=== PATIENT | male | born 1995 | race Caucasian/White ===

== ENCOUNTER 2019-08-31 20:52 | Emergency (ER) | payer SELFPAY ==
[~2019-08-31] VITALS: Ht 177.8 cm; Wt 83.9 kg
[2019-08-31] MEDS ORDERED: ONDANSETRON PF 4 MG/2 ML VIAL. IVP ONE (21:30)
[2019-08-31] MEDS ORDERED: KETOROLAC 30 MG/ML VIAL. IVP ONE (21:30)
[2019-08-31] MEDS ORDERED: ORPHENADRINE CITRATE 60 MG/2 ML VIAL. IV ONE (21:30)
--- NOTE | 2019-08-31 22:41 | RAD ---
Study: LUMBAR SPINE 2-3V Indication: Lumbar radicular pain. Comparison: None. Findings: 5 nonrib-bearing lumbar vertebral elements. The AP view is degraded by extensive bowel gas. Straightening of lumbar lordosis. Vertebral body height is maintained. No significant disc space narrowing. Vertically oriented lucency through the inferior aspect of the L4 pedicle/inferior articulating facet appears artifactual. No spondylolisthesis. Facet hypertrophy on the left at L3-L4 Impression: 1. No acute fracture or malalignment. 2. Facet hypertrophy on the left at L3-L4. 2. Maintained vertebral body and disc space height. Electronically signed by: VANDANA RETANA MD (08/31/2019 10:38 PM) [facility]
[2019-08-31] MEDS ORDERED: PRED50TA PO (23:12)
[2019-08-31] MEDS ORDERED: CYCL-331 PO (23:12)
[2019-08-31] MEDS ORDERED: HYDR-3165 PO (23:12)
[2019-08-31 23:30] VITALS: BP 118/55
--- NOTE | 2019-09-01 06:29 | PHYS DOC ---
Past History Past Medical History: Other Additional Past Medical Histor: arithritis,nerve damage rt hip Past Surgical History: Other Additional Past Surgical Histo: abdominal surgery when child Alcohol Use: Occasionally Drug Use: None Adult General Chief Complaint Chief Complaint: BACK PAIN OR INJURY [facility] HPI Patient is a [age] year old [sex] who presents with [] Review of Systems Review of Systems Constitutional: Denies fever or chills [] Eyes: Denies change in visual acuity, redness, or eye pain [] HENT: Denies nasal congestion or sore throat [] Respiratory: Denies cough or shortness of breath [] Cardiovascular: No additional information not addressed in HPI [] GI: Denies abdominal pain, nausea, vomiting, bloody stools or diarrhea [] : Denies dysuria or hematuria [] Musculoskeletal: Denies back pain or joint pain [] Integument: Denies rash or skin lesions [] Neurologic: Denies headache, focal weakness or sensory changes [] Endocrine: Denies polyuria or polydipsia [] All other systems were reviewed and found to be within normal limits, except as documented in this note. Current Medications Current Medications Current Medications Medications (Trade) Dose Ordered Sig/Gregory Start Time Stop Time Status Last Admin Dose Admin Fentanyl Citrate (Fentanyl 2ml Vial) 75 mcg 1X ONCE 08/31/19 21:30 08/31/19 21:31 DC 08/31/19 21:30 75 MCG Ketorolac Tromethamine (Toradol 30mg Vial) 30 mg 1X ONCE 08/31/19 21:30 08/31/19 21:31 DC 08/31/19 21:30 30 MG Ondansetron HCl (Zofran) 4 mg 1X ONCE 08/31/19 21:30 08/31/19 21:31 DC 08/31/19 21:30 4 MG Orphenadrine Citrate (Norflex) 30 mg 1X ONCE 08/31/19 21:30 08/31/19 21:31 DC 08/31/19 21:30 30 MG Allergies Allergies Allergies Coded Allergies Type Severity Reaction Last Updated Verified No Known Drug Allergies 10/24/14 No Physical Exam Physical Exam Constitutional: Well developed, well nourished, no acute distress, non-toxic appearance. [] HENT: Normocephalic, atraumatic, bilateral external ears normal, oropharynx moist, no oral exudates, nose normal. [] Eyes: PERRLA, EOMI, conjunctiva normal, no discharge. [] Neck: Normal range of motion, no tenderness, supple, no stridor. [] Cardiovascular:Heart rate regular rhythm, no murmur [] Lungs & Thorax: Bilateral breath sounds clear to auscultation [] Abdomen: Bowel sounds normal, soft, no tenderness, no masses, no pulsatile masses. [] Skin: Warm, dry, no erythema, no rash. [] Back: No tenderness, no CVA tenderness. [] Extremities: No tenderness, no cyanosis, no clubbing, ROM intact, no edema. [] Neurologic: Alert and oriented X 3, normal motor function, normal sensory function, no focal deficits noted. [] Psychologic: Affect normal, judgement normal, mood normal. [] Current Patient Data Vital Signs Vital Signs Date Time Temp Pulse Resp B/P (MAP) Pulse Ox O2 Delivery O2 Flow Rate FiO2 08/31/19 23:30 59 18 118/55 (76) 97 Room Air 08/31/19 20:52 98.1 EKG EKG [] Radiology/Procedures Radiology/Procedures [] Course & Med Decision Making Course & Med Decision Making Pertinent Labs and Imaging studies reviewed. (See chart for details) [] Dragon Disclaimer Dragon Disclaimer This electronic medical record was generated, in whole or in part, using a voice recognition dictation system. Departure Departure: Impression: Primary Impression: Sciatic nerve pain Disposition: 01 HOME/RESIDENCE PRIOR TO ADM Condition: STABLE Referrals: PCP,NO (PCP) Patient Instructions: Sciatica, [id number] Additional Instructions: Please take pain medication muscle relaxants and steroids as directed. Avoid heavy lifting and strenuous physical activity. Follow-up with local primary care physician as soon as possible for reevaluation. Return to the ED if new or worsening symptoms.. Scripts Prednisone (PREDNISONE) 50 Mg Tablet 1 TAB PO DAILY, #5 TAB Prov: TUNDE PATEL DO 08/31/19 Cyclobenzaprine Hcl (CYCLOBENZAPRINE HCL) 10 Mg Tablet 1 TAB PO TID, #30 TAB Prov: TUNDE PATEL DO 08/31/19 Hydrocodone Bit/Acetaminophen (NORCO 5-325 TABLET) 1 Each Tablet 1 TAB PO TID, #30 TAB Prov: TUNDE PATEL DO 08/31/19 TUNDE PATEL DO Sep 01, 2019 06:29
== END 2019-08-31 23:30 | disposition home or self-care (01) ==
LOC: ER 20:52
DX: M54.42 Lumbago with sciatica, left side (principal); M19.90 Unspecified osteoarthritis, unspecified site
CPT/HCPCS: 72100; 96374; 96375; 99284; J1885; J2360; J2405; J3010

== ENCOUNTER 2022-01-09 15:45 | Emergency (ER) | payer SELFPAY ==
[~2022-01-09] VITALS: Ht 177.8 cm; Wt 76.0 kg
[~2022-01-09 15:45] MED LIST: CYCL10TA19 PO; HYDR-3165 PO; PRED50TA PO
[2022-01-09 15:56] VITALS: BP 152/103
[2022-01-09] MEDS ORDERED: FAMOTIDINE 20 MG/2 ML VIAL IVP ONE (16:15)
[2022-01-09] MEDS ORDERED: ONDANSETRON PF 4 MG/2 ML VIAL. IVP ONE (16:15)
[2022-01-09] MEDS ORDERED: KETOROLAC 15 MG/ML VIAL. IVP ONE (16:15)
[2022-01-09] MEDS ORDERED: IV NORMAL SALINE 1,000ML 1,000 ML IV ONE (16:15)
[2022-01-09] MEDS ORDERED: CONTRAST GIVEN. MC PRN (16:45)
[2022-01-09] MEDS ORDERED: IOHEXOL 300 MG/ML 75 ML VIAL. IV ONE (16:45)
--- NOTE | 2022-01-09 16:50 | PHYS DOC ---
Past History Past Medical History: Other Additional Past Medical Histor: arithritis,nerve damage rt hip (VALERIA KAYE DO) Past Surgical History: Other Additional Past Surgical Histo: abdominal surgery when child (VALERIA KAYE DO) Smoking: Non-smoker Alcohol Use: Occasionally Drug Use: None (VALERIA KAYE DO) General Adult EDM: Chief Complaint: ABDOMINAL PAIN HPI: HPI: 26 year old male presents to ED for worsening abdominal pain, nausea, and vomiting that started around 12:00 01/08/2021. He has had multiple episodes of emesis and diarrhea. He describes the pain as dully, achy, and cramping that is located near the midline. No known sick contacts. Denies fevers. He has a history of left inguinal hernia that hasn't been repaired. He denies groin and inguinal pain at this time. Reports discomfort with bulging hernia upon urination and defecation which is normal for him. Report some headache and concern for "dehydration". He also has a history of pyloric stenosis requiring surgery as an . Denies other abdominal surgeries. He doesn't take any medications. He has been vaccinated for covid (Moderna x1). Denies dark tarry stools and bright red blood per rectum. (VALERIA KAYE DO) Review of Systems: Review of Systems: Constitutional: Denies fever or chills; reports generalized malaise Eyes: Denies redness or eye pain HENT: Denies nasal congestion or sore throat Respiratory: Denies cough or shortness of breath Cardiovascular: Denies chest pain or palpitations GI: Reports abdominal pain, nausea, and vomiting : Denies dysuria or hematuria Musculoskeletal: Denies back pain or joint pain Integument: Denies rash or skin lesions Neurologic: Denies headache, focal weakness or sensory changes Complete systems were reviewed and found to be within normal limits, except as documented in this note. (VALERIA KAYE DO) Current Medications: Current Meds: Current Medications Medications (Trade) Dose Ordered Sig/Gregory Start Time Stop Time Status Last Admin Dose Admin Famotidine (Pepcid Vial) 20 mg 1X ONCE 01/09/22 16:15 01/09/22 16:24 DC Ketorolac Tromethamine (Toradol 15mg Vial) 15 mg 1X ONCE 01/09/22 16:15 01/09/22 16:24 DC Ondansetron HCl (Zofran) 4 mg 1X ONCE 01/09/22 16:15 01/09/22 16:24 DC Sodium Chloride 1,000 ml @ 1,000 mls/hr 1X ONCE 01/09/22 16:15 01/09/22 17:14 (VALERIA KAYE DO) Allergies: Allergies: Allergies Coded Allergies Type Severity Reaction Last Updated Verified No Known Drug Allergies 10/24/14 No (VALERIA KAYE DO) Physical Exam: PE: Constitutional: Well developed, distress secondary to pain HENT: Normocephalic, atraumatic Eyes: conjunctiva normal, no discharge Neck: Normal range of motion, supple Lungs & Thorax: Tachypneic, equal chest rise and fall Abdomen: Mild tenderness to palpation to right of umbilicus, no guarding/rebound tenderness/distention Skin: Warm, dry, no erythema, no rash, tattoos Back: No tenderness, no CVA tenderness Extremities: No tenderness, ROM intact, no edema Neurologic: Alert and oriented X 3, no focal deficits noted Psychologic: Affect normal, judgment normal (VALERIA KAYE DO) Current Patient Data: Vital Signs: Vital Signs Date Time Temp Pulse Resp B/P (MAP) Pulse Ox O2 Delivery O2 Flow Rate FiO2 01/09/22 15:56 98.1 105 18 152/103 (119) 97 Room Air (VALERIA KAYE DO) EKG: EKG: [] (VALERIA KAYE DO) Radiology/Procedures: Radiology/Procedures: [] (VALERIA KAYE DO) Heart Score: C/O Chest Pain: N/A (VALERIA KAYE DO) Course & Med Decision Making: Course & Med Decision Making Pertinent Labs and Imaging studies reviewed. (See chart for details) Patient presents with midline abdominal pain with associated nausea/vomiting/diarrhea. No known sick contacts. Denies known exposure to COVID-19. Patient did receive first dose of Moderna of vaccination. Symptomatic treatment provided. IV fluid hydration given. Labs obtained and posted to chart. CT abdomen/pelvis pending. 1800-signout given to Dr. Calderon for further evaluation and final disposition. Discussed current findings and plan with patient and family, who acknowledge understanding and agreement. (VALERIA KAEY DO) Course & Med Decision Making The patient CT scan is negative for acute findings up for some small retained gas of the small bowel. This is nonspecific. See official read in the chart for more details. There is currently a software problem with radiology so the reading may only be available in PACS. This appears to be a viral enteritis. Patient stable for discharge at this time. (TUNDE CALDERON DO) Dragon Disclaimer: Dragon Disclaimer: This electronic medical record was generated, in whole or in part, using a voice recognition dictation system. (VALERIA KAYE DO) Departure Departure: Impression: Primary Impression: Abdominal pain Qualified Codes: R10.9 - Unspecified abdominal pain Disposition: HOME / SELF CARE / HOMELESS Condition: STABLE Referrals: PCP,NO (PCP) Patient Instructions: Viral Gastroenteritis, [id number] Scripts Ondansetron (ONDANSETRON ODT) 4 Mg Tab.rapdis 1 TAB PO PRN Q6-8HRS PRN for VOMITING, #16 TAB Prov: TUNDE CALDERON DO 01/09/22 VALERIA KAYE DO Jan 09, 2022 16:49 TUNDE CALDERON DO Jan 09, 2022 19:09
[2022-01-09 17:11] LABS: BASO % 0 % (0-3); EOS % 0 % (0-3); HEMATOCRIT 51.8 % (39.0-53.0); HEMOGLOBIN 17.5 g/dL (13.0-17.5); LYMPH # 0.4 x10^3/uL (1.0-4.8); LYMPH % 4 % (24-48); MEAN CORPUSCULAR HEMOGLOBIN 30 pg (25-35); MEAN CORPUSCULAR HGB CONC 34 g/dL (31-37); MEAN CORPUSCULAR VOLUME 88 fL (79-100); MONO # 0.8 x10^3/uL (0.0-1.1); MONO % 9 % (0-9); NEUT # 8.6 x10^3uL (1.8-7.7); NEUT % 87 % (31-73); PLATELET COUNT 168 x10^3/uL (140-400); RED BLOOD COUNT 5.88 x10^6/uL (4.30-5.70); WHITE BLOOD COUNT 9.8 x10^3/uL (4.0-11.0)
[2022-01-09 17:17] LABS: CALCIUM 9.2 mg/dL (8.5-10.1); GFR 90.3; POTASSIUM 3.6 mmol/L (3.5-5.1)
[2022-01-09 17:18] LABS: BACTERIA,URINE 0 /HPF (0-FEW); CLARITY,URINE CLEAR; COLOR,URINE YELLOW; GLUCOSE,URINE NEG (NEG); NITRITE,URINE NEG (NEG); RBC,URINE 0 /HPF (0-2); SQUAMOUS EPITHELIAL CELL,UR OCC /LPF; UROBILINOGEN,URINE 0.2 mg/dL (0.2 mg/dL); WBC,URINE OCC /HPF (0-4)
[2022-01-09 17:23] LABS: ALBUMIN 4.1 g/dL (3.4-5.0); ALBUMIN/GLOBULIN RATIO 1.5 (1.0-1.7); MAGNESIUM 1.9 mg/dL (1.8-2.4); TOTAL BILIRUBIN 1.6 mg/dL (0.2-1.0); TOTAL PROTEIN 6.9 g/dL (6.4-8.2)
[2022-01-09] MEDS ORDERED: ONDA4TAB12 PO (19:08)
--- NOTE | 2022-01-10 11:43 | RAD ---
EXAM: CT ABDOMEN/PELVIS WITH CONTRAST. HISTORY: Abdominal pain. TECHNIQUE: Computed tomography of the abdomen and pelvis was performed after the intravenous administ ration of iodinated contrast. One or more of the following individualized dose reduction techniques w ere utilized for this examination: 1. Automated exposure control. 2. Adjustment of the mA and/or kV according to patient size. 3. Use of iterative reconstruction technique. COMPARISON: None. FINDINGS: Lung windows through the visualized portions of the bases reveal no abnormality. Bone windo ws reveal no suspicious lesions. There are bilateral nondisplaced L4 pars interarticularis defects. The liver, gallbladder, spleen, adrenal glands, pancreas and kidneys are unremarkable. There are no p athologically enlarged lymph nodes. The appendix is not inflamed. There is mild gaseous distention of the ileum without a transition poin t to suggest small bowel obstruction. There is gas distally. IMPRESSION: 1. Mild gaseous distention of the small bowel without evidence of obstruction. Correlate for enteriti s. 2. Bilateral nondisplaced L4 pars interarticularis defects. Electronically signed by: Shane Conde MD (01/09/2022 6:34 PM) [facility]
== END 2022-01-09 19:18 | disposition home or self-care (01) ==
LOC: ER 15:45
DX: R10.33 Periumbilical pain (principal); R11.2 Nausea with vomiting, unspecified; R19.7 Diarrhea, unspecified; Z20.822 Contact with and (suspected) exposure to COVID-19
CPT/HCPCS: 74177; 80053; 81001; 83690; 83735; 85025; 99285; C9803; Q9967; U0003